=== PATIENT | female | born 1965 | race Hispanic/Latino ===

== ENCOUNTER 2022-03-17 16:20 | Emergency (ER) | payer OTHER, SELFPAY ==
[2022-03-17 16:27] VITALS: PULSE 86; RESP 18; TEMP 36.9; O2SAT 99
--- NOTE | 2022-03-17 18:08 | ED_ITS ---
HPI - Headache General Chief Complaint: Headache Stated Complaint: Fell and hit head Time Seen by Provider: 03/17/22 18:08 Mode of arrival: Ambulatory History of Present Illness HPI Narrative: 57-year-old female nonsmoker with noncontributory medical history presents with family for evaluation of a ground level fall at work resulting in a left-sided head injury. She states that she was in her normal state of health and denies prodromal symptoms such as dizziness, weakness or lightheadedness. She states that she got her feet caught up in some clothing on the ground when she was cleaning and tripped and fell, striking the left side of her head. She does not think she lost consciousness and has been nauseated but denies vomiting. She has no blurred vision or trouble with speech. She denies any neck pain, back pain, chest pain shoulder pain, elbow pain or pain in her hips. She does not take blood thinners and denies use of alcohol or street drugs. Related Data Home Medications Medication Instructions Recorded Confirmed albuterol sulfate 90 mcg/actuation 2 puff INH Q4HP PRN ##0 02/03/17 07/04/18 aerosol inhaler (Ventolin HFA) Previous Rx's Medication Instructions Recorded ibuprofen 800 mg tablet 800 mg PO TIDP PRN #20 tabs 02/03/17 meclizine 25 mg chewable tablet 25 mg PO Q6HP PRN #40 tabs 03/13/17 naproxen 500 mg tablet (Naprosyn) 500 mg PO BIDP PRN #60 tabs 03/13/17 ondansetron 4 mg disintegrating 4 mg sublingual Q6HP PRN ##10 03/17/17 tablet (Zofran ODT) albuterol sulfate 90 mcg/actuation 1 inh inhalation Q4-6H PRN 07/04/18 aerosol inhaler shortness of breath #18 grams azithromycin 250 mg tablet See Rx Instructions PO .COMPLEX #6 07/04/18 tabs Allergies Allergy/AdvReac Type Severity Reaction Status Date / Time No Known Allergies Allergy Uncoded 07/04/18 10:51 Review of Systems Review of Systems Narrative: GENERAL: Denies chills, fatigue, malaise, fever, sweats. HEENT: Denies sinus pain, ear pain, sore throat, difficulty swallowing, dizziness. RESPIRATORY: Denies dyspnea, cough, wheezing, hemoptysis, sputum. CARDIOVASCULAR: Denies chest pain, palpitations, orthopnea, edema, GASTROINTESTINAL: Denies nausea, vomiting, abdominal pain, diarrhea, constipation, melena. : Denies dysuria, frequency, incontinence, hematuria, urinary retention. MUSCULOSKELETAL: denies weakness, joint pain, or bony pain SKIN: Denies rash, skin lesions, or other NEUROLOGIC: Denies weakness, headache, numbness, change in speech, confusion, seizures, incoordination. PSYCHIATRIC: No concerning psychosocial issues. 12 point review of systems is negative except for those stated above Patient History Social History Smoking Status: Never smoker Smoking Status: Never smoker Exam Narrative Exam Narrative: GENERAL: [57] year old patient appears stated age. Well-developed patient, in mild distress. GCS 15 HEAD: Moderate size hematoma on left parietal and occiput, no bleeding, laceration or abrasion, no evidence of depressed skull fracture EYES: Pupils equal round and reactive. No hyphema Extraocular motions intact. No scleral icterus. No injection or drainage. ENT: Nose without bleeding, purulent drainage. Throat without erythema, tonsillar hypertrophy or exudate. Airway patent. NECK: Trachea midline. Non tender, no step-offs or crepitance, full painless range of motion, no extremity numbness, tingling or weakness CARDIOVASCULAR: Regular rate and rhythm without murmurs, gallops, or rubs. RESPIRATORY: Clear to auscultation. Breath sounds equal bilaterally. No wheezes, rales, or rhonchi. GASTROINTESTINAL: Abdomen soft, non-tender, nondistended. EXTREMITIES: She does complain of minimal tenderness on the volar aspect of her left wrist without obvious deformity, point tenderness, limited range of motion, numbness, tingling or weakness BACK: Nontender without deformity or crepitance. No flank tenderness. NEURO: AOx3. SKIN: No rash or erythema of visible areas Initial Vital Signs Initial Vital Signs: Vital Signs Temperature 98.5 F 03/17/22 16:27 Pulse Rate 86 03/17/22 16:27 Respiratory Rate 18 03/17/22 16:27 Pulse Oximetry 99 03/17/22 16:27 Oxygen Delivery Method 03/17/22 16:27 Course Orders Ordered: ED Orders 03/17/22 18:13 CT head/brain wo con Stat Vital Signs Vital signs: Vital Signs - 8 hr 03/17/22 16:27 03/17/22 18:09 Temperature 98.5 F Pulse Rate 86 76 Respiratory Rate 18 16 Blood Pressure 117/73 Pulse Oximetry 99 99 Oxygen Delivery Method Room Air Room Air MDM - Headache Imaging Data CT scan - head: Radiologist's Impression: Close Head CT (Signed) Axel Randall - 03/17/22 [place] [address] CT Scan Report Signed Patient: Johnna Mcgee MR#: [id number] : 1965 Acct:[id number] Age/Sex: 57 / F Date of Service: 03/17/22 Loc: ED Accession Number: [id number] ?? Procedure: CT head/brain wo con Ordering Provider: Clement Barrera D.O. PROCEDURE:? CT HEAD/BRAIN WO CON ? INDICATIONS:? fall with left side head injury ? TECHNIQUE:? Noncontrast 4.5 mm thick angled axial sections acquired from the foramen magnum to the vertex, with coronal and sagittal reformats.? For radiation dose reduction, the following was used:? automated exposure control, adjustment of mA and/or kV according to patient size.? ? COMPARISON:? None. ? FINDINGS:? Image quality:? Excellent.? ? CSF spaces:? Basal cisterns are patent.? No extra-axial fluid collections.? The ventricles are symmetric in size and shape.? ? Brain:? No intracranial bleeds or masses.? There is cerebral volume loss for age, with resultant ventricular and sulcal prominence.? There are periventricular and deep white matter chronic small vessel ischemic changes.? There is intracranial internal carotid artery atherosclerosis.? ? Skull and face:? Calvarium and visualized facial bones appear intact, without suspicious lesions.? ? Sinuses:? Visualized sinuses and mastoids are clear.? ? IMPRESSION:? No acute intracranial finding. ? ? Dictated by: Axel Randall M.D. on 03/17/2022 at 18:54 ? ? Approved by: Axel Randall M.D. on 03/17/2022 at 18:54 ? Discharge Plan Departure Patient Disposition: Home Clinical Impression: Head contusion, Left wrist sprain Instructions: Contusion Activity Restrictions/Additional Instructions: *You have been diagnosed with [fall with scalp contusion. History and physical exam are very reassuring and CT scan shows no bleeding in the brain] *What to do: *Please continue to take your regular medications as directed. [ ] New medication prescriptions sent to your pharmacy: [ ] [ ] New medication written as a paper prescription [ ] No new medications given *Please follow up with your primary care provider in 2-3 days, call for an appointment. Let them know you were seen in the Emergency Department and that we ask that you be seen in follow up. We will electronically transmit a record of today's note if your PCP is in our system *If you do not have a primary care provider please contact the [facility] Resource line at [phone]. They will ask some questions about your medical history and help get you set up with a doctor in the community. *Return to Emergency Department if you should have any new, worsening or concerning symptoms, such as [fever greater than 101 F, shaking chills, worsening pain, persistent vomiting or other bothersome symptoms] Prescriptions: No Action albuterol sulfate 90 mcg/actuation HFA aerosol inhaler 1 inh INHALATION Q4-6H PRN (Reason: shortness of breath) Qty: 18 0RF azithromycin 250 mg tablet See Rx Instructions PO .COMPLEX Qty: 6 0RF Rx Instructions: take 500 mg today (day 1), then 250 mg for 4 days (days 2-5) PO albuterol sulfate [Ventolin HFA] 90 MCG/PUFF HFA aerosol inhaler 2 puff INH Q4HP PRNQty: 0 ibuprofen 800 MG tablet 800 mg PO TIDP PRNQty: 20 0RF naproxen [Naprosyn] 500 MG tablet 500 mg PO BIDP PRNQty: 60 0RF meclizine 25 MG tablet,chewable 25 mg PO Q6HP PRNQty: 40 0RF ondansetron [Zofran ODT] 4 MG tablet,disintegrating 4 mg Sublingual Q6HP PRNQty: 10 0RF Stand Alone Forms: Work Release Note Visit Report Forms: Patient Portal/API
[2022-03-17 18:09] VITALS: BP 117/73; PULSE 76; RESP 16; O2SAT 99
--- NOTE | 2022-03-17 18:13 | DI.CT.S_ITS ---
PROCEDURE: CT HEAD/BRAIN WO CON INDICATIONS: fall with left side head injury TECHNIQUE: Noncontrast 4.5 mm thick angled axial sections acquired from the foramen magnum to the vertex, with coronal and sagittal reformats. For radiation dose reduction, the following was used: automated exposure control, adjustment of mA and/or kV according to patient size. COMPARISON: None. FINDINGS: Image quality: Excellent. CSF spaces: Basal cisterns are patent. No extra-axial fluid collections. The ventricles are symmetric in size and shape. Brain: No intracranial bleeds or masses. There is cerebral volume loss for age, with resultant ventricular and sulcal prominence. There are periventricular and deep white matter chronic small vessel ischemic changes. There is intracranial internal carotid artery atherosclerosis. Skull and face: Calvarium and visualized facial bones appear intact, without suspicious lesions. Sinuses: Visualized sinuses and mastoids are clear. IMPRESSION: No acute intracranial finding. Dictated by: Axel Randall M.D. on 03/17/2022 at 18:54 Approved by: Axel Randall M.D. on 03/17/2022 at 18:54
== END 2022-03-17 19:08 | disposition home or self-care (01) ==
PROVIDERS: Emergency Provider Emergency Medicine
DX: S00.03XA Contusion of scalp, initial encounter (principal); S63.502A Unspecified sprain of left wrist, initial encounter; W18.30XA Fall on same level, unspecified, initial encounter
CPT/HCPCS: 70450; 99283

== ENCOUNTER 2022-04-09 11:45 | Emergency (ER) | payer SELFPAY ==
[2022-04-09] VITALS (9 sets, daily range): BP systolic 119–126; BP diastolic 56–63; PULSE 88–117; RESP 15–33; TEMP 36.8; O2SAT 92–98
--- NOTE | 2022-04-09 12:04 | ED.GENADULT ---
HPI - General Adult General Chief complaint: Upper Respiratory Symptoms Stated complaint: SOB cough has inhler xtry of astma Time Seen by Provider: 04/09/22 11:58 Source: patient Mode of arrival: Ambulatory Limitations: language barrier History of Present Illness HPI narrative: 57-year-old female who is Citizen Of [place]-speaking only. Translation line was used. Has a history of asthma. States that this morning after she woke up she started to have problems bleeding to include shortness of breath and coughing. Is also having some mild chest pain. No abdominal pain. Skin rashes. No lower extremity swelling. Related Data Home Medications Medication Instructions Recorded Confirmed albuterol sulfate 90 mcg/actuation 2 puff INH Q4HP PRN ##0 02/03/17 07/04/18 aerosol inhaler (Ventolin HFA) Previous Rx's Medication Instructions Recorded ibuprofen 800 mg tablet 800 mg PO TIDP PRN #20 tabs 02/03/17 meclizine 25 mg chewable tablet 25 mg PO Q6HP PRN #40 tabs 03/13/17 naproxen 500 mg tablet (Naprosyn) 500 mg PO BIDP PRN #60 tabs 03/13/17 ondansetron 4 mg disintegrating 4 mg sublingual Q6HP PRN ##10 03/17/17 tablet (Zofran ODT) albuterol sulfate 90 mcg/actuation 1 inh inhalation Q4-6H PRN 07/04/18 aerosol inhaler shortness of breath #18 grams azithromycin 250 mg tablet See Rx Instructions PO .COMPLEX #6 07/04/18 tabs Allergies Allergy/AdvReac Type Severity Reaction Status Date / Time No Known Allergies Allergy Verified 04/09/22 12:04 Review of Systems Cardiovascular Cardiovascular: Reports system reviewed and no additional complaints, except as documented Respiratory Respiratory: Reports system reviewed and no additional complaints, except as documented Gastrointestinal Gastrointestinal: Reports system reviewed and no additional complaints, except as documented Integumentary/Breasts Skin/Breast: Reports system reviewed and no additional complaints, except as documented Patient History Medical History Asthma Social History Smoking Status: Never smoker Smoking Status: Never smoker Exam Initial Vital Signs Initial Vital Signs: Vital Signs Pulse Rate 117 H 04/09/22 11:55 Pulse Oximetry 95 04/09/22 11:55 Const General: cooperative and comfortable Resp Effort & Inspection: labored and tachypneic Auscultation: diminished lung sounds and wheezes Skin General: no rashes or lesions noted Neuro General: patient alert, patient awake and moves all extremities Extrem General: capillary refill normal Course Orders Ordered: ED Orders 04/09/22 12:02 RT Consult Eval and Treat Now 04/09/22 12:15 EKG-12 Lead Stat 04/09/22 12:32 XR chest 1V Stat 04/09/22 12:47 Covid-19 + FLU A/B + RSV - PCR Stat Discontinued Medications Albuterol (Albuterol 2.5 Mg/3 Ml Neb (Adult)) 2.5 mg INH NOW ONE Stop: 04/09/22 13:28 Last Admin: 04/09/22 13:54 Dose: 2.5 mg Documented By: JOSE Albuterol/Ipratropium (Albuterol/Ipratropium 3 Ml Ampul) 3 ml INH NOW ONE Stop: 04/09/22 12:01 Last Admin: 04/09/22 12:10 Dose: 3 ml Documented By: MR Albuterol/Ipratropium (Albuterol/Ipratropium 3 Ml Ampul) 3 ml INH NOW ONE Stop: 04/09/22 12:32 Last Admin: 04/09/22 12:42 Dose: 3 ml Documented By: JOSE Albuterol/Ipratropium (Albuterol/Ipratropium 3 Ml Ampul) 3 ml INH NOW ONE Stop: 04/09/22 12:32 Last Admin: 04/09/22 12:42 Dose: 3 ml Documented By: JOSE Dexamethasone (Dexamethasone 4 Mg Tablet) 12 mg PO NOW ONE Stop: 04/09/22 12:01 Last Admin: 04/09/22 12:29 Dose: 12 mg Documented By: JOSE Vital Signs Vital signs: Vital Signs - 8 hr 04/09/22 12:03 04/09/22 11:55 04/09/22 12:00 Temperature 98.3 F Pulse Rate 117 H 117 H 115 H Respiratory Rate 22 Blood Pressure 126/63 Pulse Oximetry 95 95 93 Oxygen Delivery Method Room Air Oxygen Flow Rate 04/09/22 12:30 Temperature Pulse Rate 103 H Respiratory Rate 15 Blood Pressure Pulse Oximetry 97 Oxygen Delivery Method Nasal Cannula Oxygen Flow Rate 2 Medical Decision Making Lab Data Labs: Lab Results 04/09/22 Range/Units 12:47 SARS-CoV-2 (PCR) Negative (Negative) Influenza A (RT-PCR) Flu a negative (NEGATIVE) Influenza B (RT-PCR) Flu b negative (NEGATIVE) RSV (PCR) Negative (Negative) Imaging Data Chest x-ray: Radiologist's Impression: [address] [address] XRay Report Signed Patient: Johnna Mcgee MR#: [id number] : 1965 Acct:[id number] Age/Sex: 57 / F Date of Service: 04/09/22 Loc: ED Accession Number: [id number] ?? Procedure: XR chest 1V Ordering Provider: Ruben Jimenez D.O. PROCEDURE:? XR CHEST 1V ? INDICATIONS:? SOB ? TECHNIQUE:? One view of the chest was acquired.? ? COMPARISON:? [facility], , CHEST 1 VIEW, 03/17/2017, 20:43. ? FINDINGS:? ? Surgical changes and devices:? None.? ? Lungs and pleura:? Lungs are clear.? No pleural effusions or pneumothorax.? ? Mediastinum:? Mediastinal contours appear normal.? Heart size is normal.? ? Bones and chest wall:? No suspicious bony lesions.? Overlying soft tissues appear unremarkable.? ? IMPRESSION:? No acute cardiopulmonary pathology. ? ? Dictated by: Ricardo Hameed M.D. on 04/09/2022 at 13:05 ? ? Approved by: Ricardo Hameed M.D. on 04/09/2022 at 13:05 ECG Data Attestation: I personally reviewed and interpreted this ECG as follows: Interpretation: Sinus tachycardia Ventricular rate 108 Normal axis Normal QRS Normal QTC Nonspecific ST T wave changes MDM Narrative Medical decision making narrative: After treatment here in the emergency department patient is feeling much better. There is no indication for any antibiotics. She has albuterol at home. I had return precautions discussion with her through the language line. She reported no further questions. She was given return precautions and she expressed understanding. Discharge Plan Departure Patient Disposition: Home Clinical Impression: Asthma exacerbation Instructions: Asthma -- Adult Prescriptions: No Action albuterol sulfate 90 mcg/actuation HFA aerosol inhaler 1 inh INHALATION Q4-6H PRN (Reason: shortness of breath) Qty: 18 0RF azithromycin 250 mg tablet See Rx Instructions PO .COMPLEX Qty: 6 0RF Rx Instructions: take 500 mg today (day 1), then 250 mg for 4 days (days 2-5) PO albuterol sulfate [Ventolin HFA] 90 MCG/PUFF HFA aerosol inhaler 2 puff INH Q4HP PRNQty: 0 ibuprofen 800 MG tablet 800 mg PO TIDP PRNQty: 20 0RF naproxen [Naprosyn] 500 MG tablet 500 mg PO BIDP PRNQty: 60 0RF meclizine 25 MG tablet,chewable 25 mg PO Q6HP PRNQty: 40 0RF ondansetron [Zofran ODT] 4 MG tablet,disintegrating 4 mg Sublingual Q6HP PRNQty: 10 0RF Referrals: Matthew Queen MD [Primary Care Provider] -
[2022-04-09] MEDS: ALBUTEROL/IPRATROPIUM 3 ML AMPUL INH ×3 (12:10→12:42)
[2022-04-09] MEDS: dexAMETHasone 4 MG TABLET 12 MG PO (12:29)
--- NOTE | 2022-04-09 12:29 | PC.NURSE ---
Pt arrived to ED ambulatory with SOB. h/o asthma. 95% RA. audibly wheezing. rec'd Dex PO and Duoneb. post neb pt reports minimal relief. Pt still wheezy to ausc. sitting over edge of bed. increased WOB has subsided however SPO2 93-94%. placed on 2L O2 for comfort and pt has laid back slightly in bed and appears more comfortable. family member at bedside and spanish interpreter ipad used for communication. pt denies any questions at this time and reports that her home inhaler she has a spacer and is educated appropriately on use.
--- NOTE | 2022-04-09 12:32 | DI.RAD.S_ITS ---
PROCEDURE: XR CHEST 1V INDICATIONS: SOB TECHNIQUE: One view of the chest was acquired. COMPARISON: [facility], , CHEST 1 VIEW, 03/17/2017, 20:43. FINDINGS: Surgical changes and devices: None. Lungs and pleura: Lungs are clear. No pleural effusions or pneumothorax. Mediastinum: Mediastinal contours appear normal. Heart size is normal. Bones and chest wall: No suspicious bony lesions. Overlying soft tissues appear unremarkable. IMPRESSION: No acute cardiopulmonary pathology. Dictated by: Ricardo Hameed M.D. on 04/09/2022 at 13:05 Approved by: Ricardo Hameed M.D. on 04/09/2022 at 13:05
[2022-04-09 13:35] LABS: Influenza A - CEPHEID Flu A NEGATIVE (NEGATIVE); Influenza B - CEPHEID Flu B NEGATIVE (NEGATIVE); Respiratory Syncytial Virus Negative (Negative)
[2022-04-09 13:44] LABS: COVID-19 CEPHEID 4-PLEX PCR Negative (Negative)
[2022-04-09] MEDS: ALBUTEROL 2.5 MG/3 ML NEB (ADULT) INH (13:54)
== END 2022-04-09 14:29 | disposition home or self-care (01) ==
PROVIDERS: Emergency Provider Emergency Medicine; PCP Family Medicine
DX: J45.901 Unspecified asthma with (acute) exacerbation (principal); R07.9 Chest pain, unspecified; Z20.822 Contact with and (suspected) exposure to COVID-19
CPT/HCPCS: 0241U; 71045; 93005; 93010; 99284; J7613

== ENCOUNTER 2022-04-09 18:26 | Inpatient (IN) | payer SELFPAY ==
[2022-04-09] VITALS (7 sets, daily range): BP systolic 117–126; BP diastolic 56–61; PULSE 93–100; RESP 20–29; TEMP 36.9; O2SAT 89–94
--- NOTE | 2022-04-09 19:30 | ED.SOB ---
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 Presents today for the 2nd time with shortness of breath. She has a history of asthma was seen earlier for an asthma exacerbation she was given albuterol and dexamethasone she was doing well. She went home took a nap woke up and had some chest discomfort along with back pain. Also complaining of some abdominal pain. Feels like she is also having some difficulty breathing. No fever or chills. Related Data Home Medications Medication Instructions Recorded Confirmed albuterol sulfate 90 mcg/actuation 2 puff INH Q4HP PRN ##0 02/03/17 07/04/18 aerosol inhaler (Ventolin HFA) Previous Rx's Medication Instructions Recorded ibuprofen 800 mg tablet 800 mg PO TIDP PRN #20 tabs 02/03/17 meclizine 25 mg chewable tablet 25 mg PO Q6HP PRN #40 tabs 03/13/17 naproxen 500 mg tablet (Naprosyn) 500 mg PO BIDP PRN #60 tabs 03/13/17 ondansetron 4 mg disintegrating 4 mg sublingual Q6HP PRN ##10 03/17/17 tablet (Zofran ODT) albuterol sulfate 90 mcg/actuation 1 inh inhalation Q4-6H PRN 07/04/18 aerosol inhaler shortness of breath #18 grams azithromycin 250 mg tablet See Rx Instructions PO .COMPLEX #6 07/04/18 tabs Allergies Allergy/AdvReac Type Severity Reaction Status Date / Time No Known Allergies Allergy Verified 04/09/22 12:04 Review of Systems Review of Systems Narrative: GENERAL: Denies chills, fatigue, malaise, fever, sweats, travel HEENT: Denies sinus pain, ear pain, sore throat, difficulty swallowing, neck pain RESPIRATORY: See HPI CARDIOVASCULAR: See HPI GASTROINTESTINAL: Denies nausea, vomiting, abdominal pain, diarrhea, constipation, melena. : Denies dysuria, frequency, incontinence, hematuria, urinary retention, flank pain. MUSCULOSKELETAL: Denies weakness, joint pain, or bony pain SKIN: No rash, no erythema, no pruritus NEUROLOGIC: Denies weakness, dizziness, headache, numbness, change in speech, confusion PSYCHIATRIC: No concerning psychosocial issues. 12 point review of systems is negative except for those stated above and HPI Patient History Medical History Asthma Family History (Updated 04/10/22 @ 02:53 by KIAN Duggan-SHABNAM) Father Diabetes mellitus Hypertension Mother Hypertension Diabetes mellitus Social History household members: spouse and children Smoking Status: Never smoker alcohol intake: never Smoking Status: Never smoker Exam Initial Vital Signs Initial Vital Signs: Vital Signs Temperature 98.5 F 04/09/22 19:12 Pulse Rate 98 H 04/09/22 19:12 Respiratory Rate 24 04/09/22 19:12 Blood Pressure 117/56 L 04/09/22 19:12 Pulse Oximetry 94 04/09/22 19:12 Oxygen Delivery Method 04/09/22 19:12 GENERAL: Alert 57-year-old female appears to not feel well responsive answers questions HEENT: Head atraumatic,EOMI, pupils reactive, face symmetric, moist mucous membranes CARDIOVASCULAR: Regular rate and rhythm without murmurs, rubs or gallops. RESPIRATORY: Mild expiratory wheezing no tachypnea ABDOMEN: Soft, nontender. Normoactive bowel sounds all 4 quadrants. No guarding or rebound. EXTREMITIES: Normal range of motion, no clubbing or edema. Neurovascularly intact NEUROLOGICAL: Alert and oriented x4.Normal gait and speech. SKIN: Warm, dry, no laceration, no petechiae, no rashes or lesions. Course Orders Ordered: ED Orders 04/09/22 19:31 EKG-12 Lead Stat 04/09/22 19:34 Respiratory Panel (Film Array) Stat 04/09/22 19:48 Complete Blood Count AUTO DIFF Stat 04/09/22 21:10 BNP [NT-proBNP (BNP-Adult 18+)] Stat Comprehensive Metabolic Panel Stat D Dimer Stat Lipase Stat Magnesium Stat Troponin & CK Cardiac Panel Stat 04/09/22 23:01 CT angio chest PE protocol Stat Acetaminophen (Acetaminophen 325 Mg Tablet) 650 mg PO Q6H PRN PRN Reason: Fever/Mild Pain (1-3) Albuterol/Ipratropium (Albuterol/Ipratropium 3 Ml Ampul) 3 ml INH [id number] [facility] Enoxaparin Sodium (Enoxaparin 40 Mg/0.4 Ml Syringe) 40 mg SUBCUT DAILY [facility] Lactated Ringer's (Lactated Ringers) 1,000 mls @ 100 mls/hr IV CONT LISA Stop: 04/10/22 08:24 Last Admin: 04/10/22 02:37 Dose: 100 mls/hr Documented By: Influenza Virus Vaccine (Influenza Vaccine Qiv 0.5 Ml Syringe) 0.5 ml IM .ONCE ONE Stop: 04/10/22 09:01 Naloxone HCl (Naloxone 0.4 Mg/Ml Vial) 0.2 mg IV Q2MIN PRN PRN Reason: Opiate Reversal Pantoprazole Sodium (Pantoprazole Dr 20 Mg Tablet) 20 mg PO 0600 [facility] Prednisone (Prednisone 20 Mg Tablet) 40 mg PO DAILY [facility] Discontinued Medications Albuterol/Ipratropium (Albuterol/Ipratropium 3 Ml Ampul) 3 ml INH NOW ONE Stop: 04/09/22 19:37 Last Admin: 04/09/22 19:37 Dose: 3 ml Documented By: HECTOR Albuterol/Ipratropium (Albuterol/Ipratropium 3 Ml Ampul) 3 ml INH NOW ONE Stop: 04/09/22 19:39 Last Admin: 04/09/22 22:40 Dose: 3 ml Documented By: MIGNON Vital Signs Vital signs: Vital Signs - 8 hr 04/09/22 19:38 04/09/22 22:21 04/09/22 22:23 Pulse Rate 99 H 100 H 97 H Respiratory Rate 20 29 H 21 Blood Pressure Pulse Oximetry 94 94 93 Oxygen Delivery Method Room Air Oxygen Flow Rate 04/09/22 22:23 04/09/22 22:40 04/09/22 22:30 Pulse Rate 93 H Respiratory Rate 20 Blood Pressure 126/58 L 123/61 Pulse Oximetry 90 L Oxygen Delivery Method Room Air Oxygen Flow Rate 04/09/22 22:30 04/09/22 23:59 Pulse Rate 97 H Respiratory Rate 24 Blood Pressure Pulse Oximetry 92 89 L Oxygen Delivery Method Nasal Cannula Room Air Oxygen Flow Rate 2 MDM - SOB/Dyspnea Lab Data Result diagrams: 04/09/22 19:48 11/09/22 21:10 Labs: Lab Results 04/09/22 04/09/22 04/09/22 Range/Units 19:34 19:48 21:10 WBC 8.1 (4.5-11.0) X10^3/uL RBC 4.74 (4.0-5.2) X10^6/uL Hgb 14.3 (12.0-16.0) g/dL Hct 42.6 (36-46) % MCV 89.8 (80-100) fL MCH 30.3 (26-34) PG MCHC 33.7 (30-36) % RDW 14.0 (11.6-14.8) % Plt Count 179 (150-400) X10^3/uL Neut % (Auto) 93.2 H (50-75) % Lymph % (Auto) 5.7 L (25-40) % [place] % (Auto) 0.8 L (3-14) % Eos % (Auto) 0.1 L (2-4) % Baso % (Auto) 0.2 (0-2) % Neut # (Auto) 7600 H (8507-7709) /uL Lymph # (Auto) 500 L (4386-6271) /uL [place] # (Auto) 100 (0-900) /uL Eos # (Auto) 0 (0-450) /uL Baso # (Auto) 0 (0-100) /uL D-Dimer (<500) ng/ml Sodium 140 (137-145) mmol/L Potassium 4.3 (3.4-5.1) mmol/L Chloride 103 (98-107) mmol/L Carbon Dioxide 27 (22-32) mmol/L BUN 10 (7-17) mg/dL Creatinine 0.41 L (0.52-1.04) mg/dL Estimated GFR > 60 (>60) mL/min BUN/Creatinine Ratio 24.4 H (6-22) Glucose 200 H (70-100) mg/dL Calcium 9.7 (8.4-10.2) mg/dL Magnesium 2.0 (1.6-2.3) mg/dL Total Bilirubin 0.9 (0.2-1.3) mg/dL AST 40 H (14-36) IU/L ALT 65 H (<35) IU/L Alkaline Phosphatase 82 (38-126) U/L Total Creatine Kinase 149 H (30-135) U/L CK-MB (CK-2) 3.24 H (<2.37) ng/mL CK-MB (CK-2) Rel Index 2.2 (1.5-5.0) % Troponin I < 0.012 (0.01-0.034) ng/mL NT-Pro-B Natriuret Pep (<125) pg/mL Total Protein 8.1 (6.3-8.2) g/dL Albumin 4.6 (3.5-5.0) g/dL Globulin 3.5 (1.7-4.1) g/dL Albumin/Globulin Ratio 1.3 (1.0-2.8) Lipase 46 (23-300) U/L Chlamy pneumoniae PCR Not detected (Not Detect) Adenovirus (PCR) Not detected (Not Detect) B. pertussis DNA (PCR) Not detected (Not Detecte) B.parapertussis DNA PCR Not detected (Not Detecte) Coronavirus OC43 (PCR) Not detected (Not Detect) Coronavirus HKU1 (PCR) Not detected (Not Detect) Coronavirus 229E (PCR) Not detected (Not Detect) SARS-CoV-2 (PCR) Not detected (Not Detecte) Coronavirus NL63 (PCR) Not detected (Not Detect) Human Metapneumovir PCR Not detected (Not Detect) Influenza Type A (PCR) Not detected (Not Detect) Influenza Type B (PCR) Not detected (Not Detect) M. pneumoniae (PCR) Not detected (Not Detect) Parainfluenza 1 (PCR) Not detected (Not Detect) Parainfluenza 2 (PCR) Not detected (Not Detect) Parainfluenza 3 (PCR) Not detected (Not Detect) Parainfluenza 4 (PCR) Not detected (Not Detect) RSV (PCR) Not detected (Not Detect) Entero/Rhino (PCR) Detected H (Not Detect) 04/09/22 04/09/22 Range/Units 21:10 21:10 WBC (4.5-11.0) X10^3/uL RBC (4.0-5.2) X10^6/uL Hgb (12.0-16.0) g/dL Hct (36-46) % MCV (80-100) fL MCH (26-34) PG MCHC (30-36) % RDW (11.6-14.8) % Plt Count (150-400) X10^3/uL Neut % (Auto) (50-75) % Lymph % (Auto) (25-40) % [place] % (Auto) (3-14) % Eos % (Auto) (2-4) % Baso % (Auto) (0-2) % Neut # (Auto) (4795-3315) /uL Lymph # (Auto) (0515-4262) /uL [place] # (Auto) (0-900) /uL Eos # (Auto) (0-450) /uL Baso # (Auto) (0-100) /uL D-Dimer 851 H (<500) ng/ml Sodium (137-145) mmol/L Potassium (3.4-5.1) mmol/L Chloride (98-107) mmol/L Carbon Dioxide (22-32) mmol/L BUN (7-17) mg/dL Creatinine (0.52-1.04) mg/dL Estimated GFR (>60) mL/min BUN/Creatinine Ratio (6-22) Glucose (70-100) mg/dL Calcium (8.4-10.2) mg/dL Magnesium (1.6-2.3) mg/dL Total Bilirubin (0.2-1.3) mg/dL AST (14-36) IU/L ALT (<35) IU/L Alkaline Phosphatase (38-126) U/L Total Creatine Kinase (30-135) U/L CK-MB (CK-2) (<2.37) ng/mL CK-MB (CK-2) Rel Index (1.5-5.0) % Troponin I (0.01-0.034) ng/mL NT-Pro-B Natriuret Pep 56 (<125) pg/mL Total Protein (6.3-8.2) g/dL Albumin (3.5-5.0) g/dL Globulin (1.7-4.1) g/dL Albumin/Globulin Ratio (1.0-2.8) Lipase (23-300) U/L Chlamy pneumoniae PCR (Not Detect) Adenovirus (PCR) (Not Detect) B. pertussis DNA (PCR) (Not Detecte) B.parapertussis DNA PCR (Not Detecte) Coronavirus OC43 (PCR) (Not Detect) Coronavirus HKU1 (PCR) (Not Detect) Coronavirus 229E (PCR) (Not Detect) SARS-CoV-2 (PCR) (Not Detecte) Coronavirus NL63 (PCR) (Not Detect) Human Metapneumovir PCR (Not Detect) Influenza Type A (PCR) (Not Detect) Influenza Type B (PCR) (Not Detect) M. pneumoniae (PCR) (Not Detect) Parainfluenza 1 (PCR) (Not Detect) Parainfluenza 2 (PCR) (Not Detect) Parainfluenza 3 (PCR) (Not Detect) Parainfluenza 4 (PCR) (Not Detect) RSV (PCR) (Not Detect) Entero/Rhino (PCR) (Not Detect) Imaging Data CT scan - chest: Radiologist's Impression: ent: Kris SuzetteJohnna A MR#: [id number] : 1965 Acct:[id number] Age/Sex: 57 / F Date of Service: 04/09/22 Loc: ED Accession Number: [id number] ?? Procedure: CT angio chest PE protocol Ordering Provider: Susannah Sams D.O. PROCEDURE:? CT ANGIO CHEST PE PROTOCOL ? INDICATIONS:? hypoxic ? TECHNIQUE:? After the administration of intravenous contrast, 2 mm thick sections acquired from the pulmonary apices to the posterior costophrenic angles.? 3-dimensional maximum intensity projection (MIP) coronal and sagittal reformats were then acquired through the thorax.? For radiation dose reduction, the following was used:? automated exposure control, adjustment of mA and/or kV according to patient size.? ? COMPARISON:? [facility], CR, XR CHEST 1V, 04/09/2022, 12:30. ? FINDINGS:? Image quality:? Excellent.? ? Pulmonary arteries:? Pulmonary arteries are normal in size, and demonstrate no intraluminal filling defects to suggest central pulmonary embolism.? ? Lower Neck: No lymphadenopathy by size criteria. Thyroid:? Visualized thyroid demonstrates no discrete nodules. Axillae: No lymphadenopathy by size criteria. Chest Wall:? Unremarkable.? Bones: Visualized osseous structures demonstrate no suspicious lesions. ? Lungs and Airways:? There is a small linear region of consolidation in the right middle lobe along the major fissure.? A subpleural nodule is demonstrated within the medial right lower lobe with associated internal calcification consistent with calcified granuloma.? No suspicious pulmonary nodules. The trachea and central airways are patent. Pleura: No pneumothorax or pleural effusions.? ? Heart: Heart size is normal.? No pericardial effusion. Thoracic Vessels: The thoracic aorta is normal in size.? Mediastinum and Katerine: No lymphadenopathy by size criteria. Esophagus: No wall thickening. No hiatal hernia. ? Abdomen:? Visualized upper abdomen demonstrates a cyst within the posterior right hepatic dome measuring up to 1.4 cm.? Wall ? IMPRESSION:? ? 1. No evidence of pulmonary embolism. ? 2. Small linear region of consolidation within the posterior right middle lobe along the major fissure.? The findings are nonspecific but suggestive of pneumonia.? The differential includes atelectasis. ? ? Dictated by: Wilfrid Bagley M.D. on 04/10/2022 at 0:18 ? ECG Data Interpretation: EKG 1. Sinus rhythm rate 101 FL interval 154 QRS [address] changes no T-wave inversions similar to previous EKG earlier today EKG 2. Sinus rhythm rate 97 similar to prior MDM Narrative Medical decision making narrative: Patient initially given albuterol treatment seems to help mildly. She is positive for entero/rhinovirus. She overall appears to not feel well but no obvious respiratory distress. She does start requiring oxygen 2 L and says 92 % on 2 L she drops to 89% on room air. She is given another his breathing treatment only helps mildly. Her D-dimer is elevated at 100 CT angio does not show any pulmonary embolism. She has no leukocytosis. At this time since she is requiring oxygen she will require admission. Sushil accepts patient Discharge Plan Departure Patient Disposition: Admitted as Observation Clinical Impression: Respiratory failure, Asthma exacerbation, Enterovirus infection Admit Date/Time: 04/10/22 00:41 Admit Provider: Destini Ling
[2022-04-09] MEDS: ALBUTEROL/IPRATROPIUM 3 ML AMPUL INH ×2 (19:37→22:40)
[2022-04-09 19:52] LABS: Add Manual Diff / Slide Review NO; Basophils Absolute Auto 0 /uL (0-100); Basophils Percent Auto 0.2 % (0-2); Eosinophils Absolute Auto 0 /uL (0-450); Eosinophils Percent Auto 0.1 % (2-4); Hematocrit 42.6 % (36-46); Hemoglobin 14.3 g/dL (12.0-16.0); Lymphocytes Absolute Auto 500 /uL (1100-4500); Lymphocytes Percent Auto 5.7 % (25-40); Mean Corpuscular HGB Conc 33.7 % (30-36); Mean Corpuscular Hemoglobin 30.3 PG (26-34); Mean Corpuscular Volume 89.8 fL (80-100); Monocytes Absolute Auto 100 /uL (0-900); Monocytes Percent Auto 0.8 % (3-14); Neutrophils Absolute Auto 7600 /uL (1500-7000); Neutrophils Percent Auto 93.2 % (50-75); Platelet Count 179 X10^3/uL (150-400); Red Blood Cell Count 4.74 X10^6/uL (4.0-5.2); White Blood Cell Count 8.1 X10^3/uL (4.5-11.0)
[2022-04-09 20:40] LABS: Adenovirus Not Detected (Not Detect); B. parapertussis Not Detected (Not Detecte); Bordetella pertussis Not Detected (Not Detecte); Chlamydophila pneumoniae Not Detected (Not Detect); Coronavirus 229E Not Detected (Not Detect); Coronavirus HKU1 Not Detected (Not Detect); Coronavirus NL 63 Not Detected (Not Detect); Coronavirus OC43 Not Detected (Not Detect); Human Metapneumovirus Not Detected (Not Detect); Human Rhinovirus/Enterovirus Detected (Not Detect); Influenza A Not Detected (Not Detect); Influenza B Not Detected (Not Detect); Mycoplasma pneumoniae Not Detected (Not Detect); Parainfluenza Virus 1 Not Detected (Not Detect); Parainfluenza Virus 2 Not Detected (Not Detect); Parainfluenza Virus 3 Not Detected (Not Detect); Parainfluenza Virus 4 Not Detected (Not Detect); Respiratory Syncytial Virus Not Detected (Not Detect); SARS- CoV-2 Not Detected (Not Detecte)
[2022-04-09 21:37] LABS: Alanine Aminotransferase 65 IU/L (<35); Albumin 4.6 g/dL (3.5-5.0); Albumin Globulin Ratio 1.3 (1.0-2.8); Alkaline Phosphatase 82 U/L (38-126); Aspartate Aminotransferase 40 IU/L (14-36); BUN Creatinine Ratio 24.4 (6-22); Bilirubin Total 0.9 mg/dL (0.2-1.3); Blood Urea Nitrogen 10 mg/dL (7-17); Calcium 9.7 mg/dL (8.4-10.2); Carbon Dioxide 27 mmol/L (22-32); Chloride 103 mmol/L (98-107); Creatine Kinase 149 U/L (30-135); Estimated Glomerular Filt Rate > 60 mL/min (>60); Globulin 3.5 g/dL (1.7-4.1); Glucose 200 mg/dL (70-100); HEMOLYSIS < 15 (0-50); Lipase 46 U/L (23-300); Potassium 4.3 mmol/L (3.4-5.1); Sodium 140 mmol/L (137-145); Total Protein 8.1 g/dL (6.3-8.2)
[2022-04-09 21:40] LABS: D Dimer 851 ng/ml (<500)
[2022-04-09 21:47] LABS: Troponin I < 0.012 ng/mL (0.01-0.034)
[2022-04-09 21:52] LABS: CKMB % Relative Index 2.2 % (1.5-5.0); Creatine Kinase MB 3.24 ng/mL (<2.37)
[2022-04-09 22:26] LABS: NT-proBNP (BNP-Adult 18+) 56 pg/mL (<125)
--- NOTE | 2022-04-09 23:01 | DI.CT.S_ITS ---
PROCEDURE: CT ANGIO CHEST PE PROTOCOL INDICATIONS: hypoxic TECHNIQUE: After the administration of intravenous contrast, 2 mm thick sections acquired from the pulmonary apices to the posterior costophrenic angles. 3-dimensional maximum intensity projection (MIP) coronal and sagittal reformats were then acquired through the thorax. For radiation dose reduction, the following was used: automated exposure control, adjustment of mA and/or kV according to patient size. COMPARISON: [facility], CR, XR CHEST 1V, 04/09/2022, 12:30. FINDINGS: Image quality: Excellent. Pulmonary arteries: Pulmonary arteries are normal in size, and demonstrate no intraluminal filling defects to suggest central pulmonary embolism. Lower Neck: No lymphadenopathy by size criteria. Thyroid: Visualized thyroid demonstrates no discrete nodules. Axillae: No lymphadenopathy by size criteria. Chest Wall: Unremarkable. Bones: Visualized osseous structures demonstrate no suspicious lesions. Lungs and Airways: There is a small linear region of consolidation in the right middle lobe along the major fissure. A subpleural nodule is demonstrated within the medial right lower lobe with associated internal calcification consistent with calcified granuloma. No suspicious pulmonary nodules. The trachea and central airways are patent. Pleura: No pneumothorax or pleural effusions. Heart: Heart size is normal. No pericardial effusion. Thoracic Vessels: The thoracic aorta is normal in size. Mediastinum and Katerine: No lymphadenopathy by size criteria. Esophagus: No wall thickening. No hiatal hernia. Abdomen: Visualized upper abdomen demonstrates a cyst within the posterior right hepatic dome measuring up to 1.4 cm. Wall IMPRESSION: 1. No evidence of pulmonary embolism. 2. Small linear region of consolidation within the posterior right middle lobe along the major fissure. The findings are nonspecific but suggestive of pneumonia. The differential includes atelectasis. Dictated by: Wilfrid Bagley M.D. on 04/10/2022 at 0:18 Approved by: Wilfrid Bagley M.D. on 04/10/2022 at 0:23
[2022-04-10] VITALS (12 sets, daily range): BP systolic 100–130; BP diastolic 51–65; PULSE 70–95; RESP 14–24; TEMP 36.4–37.1; O2SAT 92–97; BMI 28.3
--- NOTE | 2022-04-10 01:35 | PM.HP.1 ---
History of Present Illness History of Present Illness Date Patient Seen: 04/10/22 Time Patient Seen: 01:36 Chief complaint: Asthma, SOB Narrative: Johnna Ponce is a 57 yr old female surinamese speaking only, Cambodian-speaking familymember at bedside offered american sign language interpreter services but okay with family interpreting.? Presents today for the 2nd time with shortness of breath.? She has a history of asthma was seen earlier for an asthma exacerbation she was given albuterol and dexamethasone she was doing well.? She went home took a nap woke up and had some chest discomfort, back pain, some abdominal pain with increased difficulty breathing.? Patient originally presented with respiratory rates from 20-33, and heart rates from 102-117, and O2 saturations in the low 80s on room air. Patient received 2 nebulizing treatments in ED. Patient's earlier ED visit on 04/09/2022 demonstrated she was negative for COVID, flu A/B, and RSV. I personally reviewed patient's ER chart notes. At the time of admit patient verbalizes that signs and symptoms started approximately no more than 48 hours ago and quickly escalated, bring her into ED. It is noted that the patient's young daughter came down with a viral illness 4 days ago, was seen by pediatrics and was negative for COVID. Currently while resting in bed she is on 2 L of O2 still feels slightly short of breath, audible wheezing tight constricted breath sounds, patient appears to improve SOB by sitting in a more upward position in the bed. Patient endorses headache, sore throat, and intercostal pain diffusely across chest and upper abdomen She currently denies chest pain, abdominal pain other than epigastric muscle pain and discomfort with coughing, nausea, vomiting, diarrhea, hematemesis, diarrhea, constipation, blood in stool, urinary symptoms, hematuria, recent falls, skin injuries, infection, recent illness injury or trauma. Patient only takes albuterol as needed for chronic asthma denies any other medical history, has had no surgical procedures. Patient has not yet received the flu vaccine, but is fully vaccinated against COVID. At the time of admit temp 98.5?, BP 123/61, HR 93, O2 saturation 89% on 2 L respiratory rate of 20. Patient has no white count although very slight left shift 7600, chemistries are mostly unremarkable with the exception of glucose 200 creatinine 0.41, patient's D-dimer 851: Chest CTA negative for PE, small linear region of consolidation within the posterior right middle lobe along the major fissure, possibly suggestive of pneumonia. CK-2: 3.24, troponin BNP and lipase are all WNL. Patient's EKG sinus tachycardia with a rate of [address] or T-wave changes, patient's respiratory panel was positive for rhino virus. Patient admitted for acute respiratory failure with hypoxia secondary to rhino virus. Patient History Medical History Asthma Comment: No surgical history Family & Social History Family History (Updated 04/10/22 @ 02:53 by AKIN Duggan) Father Diabetes mellitus Hypertension Mother Hypertension Diabetes mellitus Social History: Patient lives with her spouse and sister, she works at the [employer] in [place]. Safety & Behavioral: Yes patient feels safe in her home. Tobacco & Substance use: Smoking Status Never smoker Alcohol-never Recreational substances/drugs never Meds Home Medications and Allergies Home Medications Medication Instructions Recorded Confirmed Type albuterol sulfate 90 mcg/actuation 2 puff INH Q4HP PRN Shortness Of 02/03/17 04/10/22 History aerosol inhaler (Ventolin HFA) Breath Or Wheezing ##0 Allergies Allergy/AdvReac Type Severity Reaction Status Date / Time No Known Allergies Allergy Verified 04/09/22 12:04 Review of Systems Review of Systems Narrative: All 12 point systems reviewed with the patient and are negative except otherwise documented. Exam Vital Signs (past 8 hours): - 04/09/22 19:12 04/09/22 19:38 04/09/22 22:21 Temperature 98.5 F Pulse Rate 98 H 99 H 100 H Respiratory Rate 24 20 29 H Blood Pressure 117/56 L Pulse Oximetry 94 94 94 Oxygen Delivery Method Room Air Room Air Oxygen Flow Rate 04/09/22 22:23 04/09/22 22:23 04/09/22 22:40 Temperature Pulse Rate 97 H 93 H Respiratory Rate 21 20 Blood Pressure 126/58 L Pulse Oximetry 93 90 L Oxygen Delivery Method Room Air Oxygen Flow Rate 04/09/22 22:30 04/09/22 22:30 04/09/22 23:59 Temperature Pulse Rate 97 H Respiratory Rate 24 Blood Pressure 123/61 Pulse Oximetry 92 89 L Oxygen Delivery Method Nasal Cannula Room Air Oxygen Flow Rate 2 04/10/22 00:55 Temperature Pulse Rate 94 H Respiratory Rate 23 Blood Pressure 129/61 Pulse Oximetry 92 Oxygen Delivery Method Nasal Cannula Oxygen Flow Rate 2 Oxygen Delivery Method Nasal Cannula Oxygen Flow Rate 2 Narrative Exam Narrative: General: Patient is a well-developed, well-nourished mushtaq surinamese speaking only female, who appears older than stated age, in no acute distress at this time. HEENT: Normocephalic, atraumatic, extraocular muscles intact, oral pharynx is clear and mucous membranes are dry. Neck is supple and symmetric, trachea is midline, no adenopathy, no thyroid enlargement, nontender, no masses palpated. Negative for JVD Chest: Normal AP diameter and contour without kyphoscoliosis, no nasal flaring, retractions, mildly tachypneic breathing Lungs: Auscultation of all lung leon are severely decreased, tight, poor air exchange, audible expiratory wheezing, shallow breathing. Cardio: regular rate and rhythm without murmur, rubs, or gallops, no carotid bruit, no cardiac pulsations present. Abdomen: Soft nontender, negative for organomegaly, or masses. Bowel sounds are present in all 4 quadrants without guarding or rebound, no CVA tenderness. Musculoskeletal: Muscle strength and tone are equal within normal limits, no deformity, crepitus, effusions, cyanosis, clubbing or edema present. Full range of motion intact radial and pedal pulses are normal. Skin: Warm dry and intact without rashes, ulcerations or petechiae. Patient appears dehydrated and dry. Neuro: Alert and orientated x3, moves all extremities, sensation to touch intact, no gross deficits noted of cranial nerves. Psych: Patient has a well-kept appearance, appropriate affect, mental status attitude thought context and judgment are appropriate for age. Patient's adult daughter provided translation, per patient's preference. Objective Labs Result Diagrams: 04/09/22 19:48 04/09/22 21:10 Labs: Laboratory Results - last 24 hr 04/09/22 04/09/22 04/09/22 19:34 19:48 21:10 WBC 8.1 RBC 4.74 Hgb 14.3 Hct 42.6 MCV 89.8 MCH 30.3 MCHC 33.7 RDW 14.0 Plt Count 179 Neut % (Auto) 93.2 H Lymph % (Auto) 5.7 L Manati % (Auto) 0.8 L Eos % (Auto) 0.1 L Baso % (Auto) 0.2 Neut # (Auto) 7600 H Lymph # (Auto) 500 L Man[place] # (Auto) 100 Eos # (Auto) 0 Baso # (Auto) 0 D-Dimer Sodium 140 Potassium 4.3 Chloride 103 Carbon Dioxide 27 BUN 10 Creatinine 0.41 L Estimated GFR > 60 BUN/Creatinine Ratio 24.4 H Glucose 200 H Calcium 9.7 Magnesium 2.0 Total Bilirubin 0.9 AST 40 H ALT 65 H Alkaline Phosphatase 82 Total Creatine Kinase 149 H CK-MB (CK-2) 3.24 H CK-MB (CK-2) Rel Index 2.2 Troponin I < 0.012 NT-Pro-B Natriuret Pep Total Protein 8.1 Albumin 4.6 Globulin 3.5 Albumin/Globulin Ratio 1.3 Lipase 46 Chlamy pneumoniae PCR Not detected Adenovirus (PCR) Not detected B. pertussis DNA (PCR) Not detected B.parapertussis DNA PCR Not detected Coronavirus OC43 (PCR) Not detected Coronavirus HKU1 (PCR) Not detected Coronavirus 229E (PCR) Not detected SARS-CoV-2 (PCR) Not detected Coronavirus NL63 (PCR) Not detected Human Metapneumovir PCR Not detected Influenza Type A (PCR) Not detected Influenza Type B (PCR) Not detected M. pneumoniae (PCR) Not detected Parainfluenza 1 (PCR) Not detected Parainfluenza 2 (PCR) Not detected Parainfluenza 3 (PCR) Not detected Parainfluenza 4 (PCR) Not detected RSV (PCR) Not detected Entero/Rhino (PCR) Detected H 04/09/22 04/09/22 21:10 21:10 WBC RBC Hgb Hct MCV MCH MCHC RDW Plt Count Neut % (Auto) Lymph % (Auto) Manati % (Auto) Eos % (Auto) Baso % (Auto) Neut # (Auto) Lymph # (Auto) [place] # (Auto) Eos # (Auto) Baso # (Auto) D-Dimer 851 H Sodium Potassium Chloride Carbon Dioxide BUN Creatinine Estimated GFR BUN/Creatinine Ratio Glucose Calcium Magnesium Total Bilirubin AST ALT Alkaline Phosphatase Total Creatine Kinase CK-MB (CK-2) CK-MB (CK-2) Rel Index Troponin I NT-Pro-B Natriuret Pep 56 Total Protein Albumin Globulin Albumin/Globulin Ratio Lipase Chlamy pneumoniae PCR Adenovirus (PCR) B. pertussis DNA (PCR) B.parapertussis DNA PCR Coronavirus OC43 (PCR) Coronavirus HKU1 (PCR) Coronavirus 229E (PCR) SARS-CoV-2 (PCR) Coronavirus NL63 (PCR) Human Metapneumovir PCR Influenza Type A (PCR) Influenza Type B (PCR) M. pneumoniae (PCR) Parainfluenza 1 (PCR) Parainfluenza 2 (PCR) Parainfluenza 3 (PCR) Parainfluenza 4 (PCR) RSV (PCR) Entero/Rhino (PCR) Assessment & Plan Assessment & Plan narrative: Johnna Ponce is a 57 yr old female surinamese speaking only, Cambodian-speaking familymember at bedside offered american sign language interpreter services but okay with family interpreting.? Presents today for the 2nd time with escalating shortness of breath, she had been seen earlier in the day for asthma exacerbation given albuterol and dexamethasone. But returned due to escalating shortness of breath. Patient admitted for acute respiratory failure with hypoxia secondary to rhino virus with symptoms of shortness of breath, tachycardia, and tachypnea. 1. Acute respiratory failure with hypoxia, shortness of breath, tachycardia, tachypnea, acute, secondary to rhino virus, with asthma, exacerbation, acute on chronic, present on admission -admit temp 98.5?, BP 123/61, HR 93, O2 saturation 89% on 2 L respiratory rate of 20. HR 102-117, RR 20-33, O2 saturations in the low 80s on room air in ED. - -D-dimer 851: Chest CTA negative for PE, small linear region of consolidation within the posterior right middle lobe along the major fissure, possibly suggestive of pneumonia. -total creatinine kinase 149, CK-2: 3.24, troponin BNP and lipase are all WNL. -positive rhino virus. -earlier ED visit on 04/09/2022 -negative for COVID, flu A/B, and RSV. -patient fully vaccinated against COVID requesting flu vaccine: order placed -labs ordered [id number] 200, procalcitonin, lactate -respiratory consult, DuoNebs q.4 hours, incentive spirometry q.4 hours while awake. -LR 100 cc/HR-as signs of dehydration: BUN creatinine ratio 24.4 (6Hr) -prednisone 40 mg q.day x4 days -holding HFA albuterol, using instead nebulizing treatments. 2. Overweight as evidence by BMI of 28.3, acute on chronic, present on admission -dietary consult ordered regarding nutritional education and information for dietary, lifestyle, exercise, and weight changes. -the patient is at much higher risk for medical and surgical complications due to overweight as it relates to increased risk of chronic illnesses:, and impairing ability to recover from acute illness. The patient's overweight increases the difficulty and complexity of medical and/or surgical interventions, management and increases the chances of poor outcome such as morbidity and mortality as well as impaired wound healing. Code status:Full Surrogate decision maker: Berny Masterson -spouse COVID PCR:Negative COVID vaccination: Fully vaccinated DVT/VTE prophylaxis: Lovenox and SCDs Disposition: Patient admitted for observation, to improve respiratory function with nebulizing treatments steroids and oxygen support, expected length of stay less than 2 midnights. I have utilized all available immediate resources to obtain, update, or review the patient's current medications. Exception-the patient is not eligible for medication reconciliation; the patient is in an emergent medical situation were delaying treatment would jeopardize the patient's health. I have personally reviewed patient's chart notes from PCP, specialists, diagnostic imaging, and laboratory, Time Spent With Patient Critical Care time: I spent a total of [] minutes of critical care time on this patient's care today; this time is exclusive of procedural time.
[2022-04-10] MEDS: LACTATED RINGERS 1,000 ML 100 ML IV (02:37)
[2022-04-10] MEDS: ACETAMINOPHEN 325 MG TABLET 650 MG PO (03:17)
--- NOTE | 2022-04-10 04:38 | PC.NURSE ---
Patient admitted to room 210 from ED at 0200. Patient is Telugu speaking only and wants her daughter who is at the bedside to interpret for her. At 0430 patient c/o SOB at rest and requested RT treatment. Audible wheezing present, O2 2L NC on. RT called for treatment and at bedside now.
[2022-04-10] MEDS: ALBUTEROL 2.5 MG/3 ML NEB (ADULT) INH ×2 (04:50→09:38)
[2022-04-10 05:06] LABS: Lactate (Lactic Acid) 1.1 mmol/L (0.7-2.1)
[2022-04-10 05:07] LABS: Blood Urea Nitrogen 11 mg/dL (7-17); Calcium 9.5 mg/dL (8.4-10.2); Carbon Dioxide 28 mmol/L (22-32); Chloride 103 mmol/L (98-107); Estimated Glomerular Filt Rate > 60 mL/min (>60); Glucose 165 mg/dL (70-100); HEMOLYSIS < 15 (0-50); Potassium 4.1 mmol/L (3.4-5.1); Sodium 140 mmol/L (137-145)
[2022-04-10 05:16] LABS: INR 1.1 (0.9-1.3)
[2022-04-10 05:29] LABS: Hemoglobin A1C% w Est Avg Glu 6.5 % (4.0-6.0)
[2022-04-10 05:31] LABS: NT-proBNP (BNP-Adult 18+) 93 pg/mL (<125)
[2022-04-10 05:39] LABS: Procalcitonin 0.06 ng/mL (<0.5)
[2022-04-10] MEDS: PANTOPRAZOLE DR 20 MG TABLET PO (06:03)
--- NOTE | 2022-04-10 08:12 | DI.US.S_ITS ---
PROCEDURE: US ABDOMEN LIMITED INDICATIONS: elevated LFT's, hepatic cyst on CTA chest TECHNIQUE: Real-time scanning was performed of the abdominal and retroperitoneal organs, with image documentation. COMPARISON: None. FINDINGS: Liver: Liver is enlarged and demonstrates diffusely increased echogenicity. Within the medial left hepatic lobe there is a hypoechoic focus measuring 26 mm. No hepatic cyst is seen. Gallbladder: Is within normal limits Biliary ducts: Intrahepatic bile ducts are non-dilated. Extrahepatic bile duct caliber measures 4 mm. Normal is 6-7 mm or less in diameter, or 10 mm or less post-cholecystectomy. Pancreas: Visualized portions of the pancreas are sonographically normal. IMPRESSION: 1. Hepatic steatosis. 2. Indeterminate left hepatic lobe lesion. This could be further assessed with liver protocol MRI, if clinically indicated. Dictated by: Robert Salcedo M.D. on 04/10/2022 at 14:44 Approved by: Robert Salcedo M.D. on 04/10/2022 at 14:46
[2022-04-10] MEDS: INFLUENZA VACCINE QIV 0.5 ML SYRINGE IM (09:51)
[2022-04-10] MEDS: ENOXAPARIN 40 MG/0.4 ML SYRINGE SUBCUT (09:52)
[2022-04-10] MEDS: predniSONE 20 MG TABLET 40 MG PO (09:52)
--- NOTE | 2022-04-10 11:24 | DIET.CONS ---
Addendum entered by Preeti Ulrich 04/10/22 11:38: RD agrees with student sales management intern note. Original Note: Dietary Consultation Note Admission Date: 04/10/2022 00:41 Admission Date: 04/08/2022 21:52 Assessment: Pt is a 57 yo F admitted for ARF d/t rhino virus seen by RD for BMI 28.3. Pt on prednisone, which will elevate BG while hospitalized. Pt is Niuean speaking only. Pt's daughter interpreted for RD and pt. 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 Pt reports both mother and father had T2DM. Diet Recall: B: shake with milk, banana and strawberries (no sugar added) L: sandwich or salad D: soup or meat Carolyn: coffee with sugar and milk Ht: 157.48 cm Wt: 83.5 kg BMI: 30.2 Last BM: 04/09/22 (04/09/22 09:49) MNA: 12 Souleymane Score: 19 Diet: 04/09/22 Lunch Clear Liquid Diet Diet Modifications: Nutrition Percent Meal Consumed 100% 04/10/22 08:41 Percent Meal Consumed 100% 04/09/22 17:30 Percent Meal Consumed 100% 04/09/22 13:11 Labs: RBC 3.93 X10^6/uL (4.0-5.2) L 04/09/22 06:35 Hgb 12.5 g/dL (12.0-16.0) 04/09/22 06:35 Hct 38.4 % (36-46) 04/09/22 06:35 Creatinine 1.05 mg/dL (0.52-1.04) H 04/10/22 04:48 Lactate 1.6 mmol/L (0.7-2.1) 04/08/22 20:16 NT-Pro-B Natriuret Pep 4990 pg/mL (<450) H 04/08/22 18:11 Nutrition Diagnosis: Altered lab values r/t endocrine dysfunction and intake of added sugar aeb A1C 6.5%, BG 165-200, pt diet recall shows sugar added to coffee. Interventions: 1. To support blood glucose health, pt diet changed to Carbohydrate Consistent diet while in the hospital. Recc pt replace sugar in coffee with non-nutritive sweetener. Provided pt with handouts on nutrition facts label information for patients with diabetes and a prediabetes overview handout - both in Niuean. 2. Encouraged pt to have annual surveillance for prediabetes with care team at [facility]. Monitoring/Evaluations: follow up with pt prn Electronically Signed by: Electronically Signed by: Sun Kruger 04/10/22 11:24 Clinical Dietitian [address] [address]
[2022-04-10] MEDS: ALBUTEROL/IPRATROPIUM 3 ML AMPUL INH ×3 (15:12→22:28)
--- NOTE | 2022-04-10 15:30 | CM.DANOTE ---
Patient is a 57 yo female who was admitted on 04/10/22 for Asthma Exac/SOB. Pt is SELF PAY and no insurance and her PCP is Matthew Queen. EMR was reviewed. Per MD, pt is Chinese Speaking only and wants family to interpret bedside and admitted for respiratory failure and hypoxia secondary to Rhino Virus. Pt currently on 2LO2 and on nebs and prednisone and possible new dx diabetes. Per [employer] Helper, will complete diabetes education for pre-diabetes prior to discharge. Per AD Counselors, pt non-documented and currently self-pay and AD Counselor attempted processing an [employer] ([employer]) application through the [employer] with patient?s daughter, Caren, and was able to be processed. Pt has had [employer] before but it?s been a while and most likely was for maternity only. She has a younger daughter and a spouse in the household for a total of 3. Patient is the only member working at $19/hr approx. 4-6 hours per day 5-6 days per week. Pt also given [employer] application. 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 Pt is independent at baseline. No bedside assessment at this time due to triage needs and precautions in place. Plan: SW to follow closely for pt progress to confirm safe plan of home with family and was given information for coverage for pt's admission due to current lack of medical insurance. SW to follow for any further identified discharge planning needs. YOLANDE Cintron Discharge Planning/Care Management CM Discharge Assessment Start: 04/10/22 15:27 Freq: Status: Active Protocol: Document 04/10/22 15:28 BF (Rec: 04/10/22 15:29 [id number]) Discharge Planning Assessment Assigned Certified Technician Specialist YOLANDE Red DPOA/Assigned Designee Name none Advance Directives? No Advance Directives on File No History Provided By Patient,Family Member,Medical Record Has Patient been admitted in last 30 No days? Prior Living Arrangements Mobile home Household Members spouse,children Type of transporation used prior to Drives own vehicle admit Independent with ADL's Yes Is patient alert and oriented? Yes Barriers to Discharge Yes Comment Self Pay Discharge Plan Home Transportation Arrangement Family to provide transport at d/c Referrals Initiated None needed Review Status In Process Please Provide Date Initial DC 04/10/22 Assessment Was Performed Next Review Type Continued Stay Review
[2022-04-10] MEDS: guaiFENesin ER 600 MG TAB PO (16:07)
[2022-04-10] MEDS: SODIUM CHLORIDE 0.9% FLUSH 10 ML IV (21:33)
[2022-04-11] VITALS (9 sets, daily range): BP systolic 101–129; BP diastolic 54–103; PULSE 65–90; RESP 14–24; TEMP 36.3–37; O2SAT 91–98
[2022-04-11] MEDS: guaiFENesin ER 600 MG TAB PO (04:51)
--- NOTE | 2022-04-11 04:56 | PC.NURSE ---
Persistent coughing, denies dyspnea. Medicated with 600 mg. of Mucinex & encouraged to drink more water. Will cont. POC & monitor.
[2022-04-11] MEDS: PANTOPRAZOLE DR 20 MG TABLET PO (05:34)
--- NOTE | 2022-04-11 08:39 | PM.PN.1 ---
Subjective Subjective Date Patient Seen: 04/11/22 Time Patient Seen: 09:00 Interval history: Breathing slowly improving. Was able to get up to chair yesterday for several hours. No complaints. Exam Vital Signs (past 8 hours): - 04/11/22 04:00 Temperature 97.4 F L Pulse Rate 65 Respiratory Rate 14 Blood Pressure 129/70 Pulse Oximetry 98 Oxygen Flow Rate 2 Fraction of Inspired Oxygen 28 SaO2/FiO2 Ratio 335 Oxygen Delivery Method Nasal Cannula Oxygen Flow Rate 2 Narrative Exam Narrative: General: Patient is a well-developed, well-nourished mushtaq gambian speaking only female, who appears older than stated age, in no acute distress at this time. HEENT: Normocephalic, atraumatic, extraocular muscles intact, oral pharynx is clear and mucous membranes are dry. Neck is supple and symmetric, trachea is midline, no adenopathy, no thyroid enlargement, nontender, no masses palpated. Negative for JVD Chest: Normal AP diameter and contour without kyphoscoliosis, no nasal flaring, retractions, mildly tachypneic breathing Lungs: Faint wheezes improving, left lung base rales present Cardio: regular rate and rhythm without murmur, rubs, or gallops, no carotid bruit, no cardiac pulsations present. Abdomen: Soft nontender, negative for organomegaly, or masses. Bowel sounds are present in all 4 quadrants without guarding or rebound, no CVA tenderness. Musculoskeletal: Muscle strength and tone are equal within normal limits, no deformity, crepitus, effusions, cyanosis, clubbing or edema present. Full range of motion intact radial and pedal pulses are normal. Skin: Warm dry and intact without rashes, ulcerations or petechiae. Patient appears dehydrated and dry. Neuro: Alert and orientated x3, moves all extremities, sensation to touch intact, no gross deficits noted of cranial nerves. Psych: Patient has a well-kept appearance, appropriate affect, mental status attitude thought context and judgment are appropriate for age. Patient's adult daughter provided translation, per patient's preference. Objective Labs Result Diagrams: 04/09/22 19:48 04/10/22 04:40 [facility] Medical History Asthma Family History (Updated 04/10/22 @ 02:53 by KIAN Duggan-BC) Father Diabetes mellitus Hypertension Mother Hypertension Diabetes mellitus Social History household members: spouse and children Smoking Status: Never smoker alcohol intake: never Assessment & Plan Assessment & Plan narrative: 1. Acute hypoxic resp failure secondary to rhinovirus triggering asthma exacerbation, present on admission -admit temp 98.5?, BP 123/61, HR 93, O2 saturation 89% on 2 L respiratory rate of 20. HR 102-117, RR 20-33, O2 saturations in the low 80s on room air in ED. - -D-dimer 851: Chest CTA negative for PE, small linear region of consolidation within the posterior right middle lobe along the major fissure, possibly suggestive of pneumonia. -positive rhino virus. -patient fully vaccinated against COVID and received flu vaccine while admitted -respiratory consult, DuoNebs q.4 hours, incentive spirometry q.4 hours while awake. -LR 100 cc/HR-as signs of dehydration: BUN creatinine ratio 24.4 (6Hr) -prednisone 40 mg q.day x5 days -holding HFA albuterol, using instead nebulizing treatments. -currently on 1-2L NC 2. Overweight as evidence by BMI of 28.3, acute on chronic, present on admission -dietary consult ordered regarding nutritional education and information for dietary, lifestyle, exercise, and weight changes. -the patient is at much higher risk for medical and surgical complications due to overweight as it relates to increased risk of chronic illnesses:, and impairing ability to recover from acute illness. The patient's overweight increases the difficulty and complexity of medical and/or surgical interventions, management and increases the chances of poor outcome such as morbidity and mortality as well as impaired wound healing. 3. Elevated LFT's -abd US shows fatty liver and indeterminate lesion -recommend possible outpatient liver MRI to assess lesion further -not on statins Code status:Full Surrogate decision maker: Berny Masterson -spouse COVID PCR:Negative COVID vaccination: Fully vaccinated DVT/VTE prophylaxis: Lovenox and SCDs Disposition: Home in 1-2 days. Time Spent With Patient Critical Care time: I spent a total of [] minutes of critical care time on this patient's care today; this time is exclusive of procedural time. Quality VTE Deep Vein Thrombosis/Pulmonary Embolism Present on Admission: No
[2022-04-11] MEDS: predniSONE 20 MG TABLET 40 MG PO (09:28)
[2022-04-11] MEDS: SODIUM CHLORIDE 0.9% FLUSH 10 ML IV ×2 (09:28→21:03)
[2022-04-11] MEDS: ENOXAPARIN 40 MG/0.4 ML SYRINGE SUBCUT (09:28)
[2022-04-11] MEDS: ALBUTEROL/IPRATROPIUM 3 ML AMPUL INH ×4 (10:19→22:30)
--- NOTE | 2022-04-11 10:48 | PC.NURSE ---
Addendum entered by Hayder Ahmadi R.N. 04/11/22 12:45: Pt presently up in chair having lunch. Chair alarm on. Daughter out of room presently. Original Note: A&O daughter attentive at bedside. Daughter helps translate for Pt as she is only Bengali speaking. Pt YOUNG's, offers no overt c/o though upper left lobe slightly wheezy. Continues on 2ltrs 92%. Discussed care with Dr. Plummer. see new orders.
--- NOTE | 2022-04-12 02:52 | PC.NURSE ---
Pt is AxOx4, independent in the room and Syrian speaking lady. Her dtr is in the room for audio visual collections coordinator. VSS, pt denies pain; pt is on 1L O2 and sats 95%. Lungs diminished in all areas. Continued droplet precaution. No other changes. Continue moniotor.
[2022-04-12 03:10] LABS: HBsAg Screen Negative (Negative); Hepatitis A Antibody IgM Negative (Negative); Hepatitis B Core Antibody IgM Negative (Negative); Hepatitis C Antibody <0.1 s/co ratio (0.0-0.9)
[2022-04-12 05:55] VITALS: BP 126/71; PULSE 80; RESP 18; TEMP 36.3; O2SAT 95
[2022-04-12] MEDS: guaiFENesin ER 600 MG TAB PO (08:14)
[2022-04-12] MEDS: PANTOPRAZOLE DR 20 MG TABLET PO (08:14)
[2022-04-12] MEDS: predniSONE 20 MG TABLET 40 MG PO (08:15)
[2022-04-12] MEDS: ENOXAPARIN 40 MG/0.4 ML SYRINGE SUBCUT (08:15)
[2022-04-12] MEDS: SODIUM CHLORIDE 0.9% FLUSH 10 ML IV (08:17)
--- NOTE | 2022-04-12 08:51 | P.DS_ITS ---
History of Present Illness History of Present Illness Date Patient Seen: 04/12/22 Time Patient Seen: 08:51 Chief complaint: Asthma, SOB Narrative: Per Destini Ling, [employer] OPERATOR-: Johnna Ponce is a 57 yr old female moroccan speaking only, English- speaking familymember at bedside offered interpreter translator services but okay with family interpreting.? Presents today for the 2nd time with shortness of breath.? She has a history of asthma was seen earlier for an asthma exacerbation she was given albuterol and dexamethasone she was doing well.? She went home took a nap woke up and had some chest discomfort, back pain, some abdominal pain with increased difficulty breathing.? Patient originally presented with respiratory rates from 20-33, and heart rates from 102-117, and O2 saturations in the low 80s on room air. Patient received 2 nebulizing treatments in ED. Patient's earlier ED visit on 04/09/2022 demonstrated she was negative for COVID, flu A/B, and RSV. I personally reviewed patient's ER chart notes. At the time of admit patient verbalizes that signs and symptoms started approximately no more than 48 hours ago and quickly escalated, bring her into ED. It is noted that the patient's young daughter came down with a viral illness 4 days ago, was seen by pediatrics and was negative for COVID. Currently while resting in bed she is on 2 L of O2 still feels slightly short of breath, audible wheezing tight constricted breath sounds, patient appears to improve SOB by sitting in a more upward position in the bed. Patient endorses headache, sore throat, and intercostal pain diffusely across chest and upper abdomen She currently denies chest pain, abdominal pain other than epigastric muscle pain and discomfort with coughing, nausea, vomiting, diarrhea, hematemesis, diarrhea, constipation, blood in stool, urinary symptoms, hematuria, recent falls, skin injuries, infection, recent illness injury or trauma. Patient only takes albuterol as needed for chronic asthma denies any other medical history, has had no surgical procedures. Patient has not yet received the flu vaccine, but is fully vaccinated against COVID. At the time of admit temp 98.5?, BP 123/61, HR 93, O2 saturation 89% on 2 L respiratory rate of 20. Patient has no white count although very slight left shift 7600, chemistries are mostly unremarkable with the exception of glucose 200 creatinine 0.41, patient's D-dimer 851: Chest CTA negative for PE, small linear region of consolidation within the posterior right middle lobe along the major fissure, possibly suggestive of pneumonia. CK-2: 3.24, troponin BNP and lipase are all WNL. Patient's EKG sinus tachycardia with a rate of [address] or T-wave changes, patient's respiratory panel was positive for rhino virus. Patient admitted for acute respiratory failure with hypoxia secondary to rhino virus. Discharge Providers Provider Date of admission: 04/10/22 09:50 Discharge Date: 04/12/22 Primary care physician: Matthew Queen MD Consults: 04/10/22 01:28 Consult to Respiratory Therapy Evaluate & Treat Comment: Rhino virus/SOB PRN Physician Instructions: Evaluate and treat 04/10/22 03:24 Consult to Dietitian, Adult Routine Comment: Reason For Exam: BMI 28.3 Discharge provider: Melquiades Urbina DO Summary Hospital Course Discharge Diagnosis: 1. Acute hypoxic resp failure secondary to rhinovirus triggering asthma exacerbation, present on admission 2. Overweight as evidence by BMI of 28.3, acute on chronic, present on admission 3. Elevated LFT's Hospital Course: 57 year old female admitted with acute respiratory failure with hypoxia due to rhinovirus triggering an asthma exacerbation. She was started on steroids with improvement over the following couple of days. On the day of discharge, she felt improved and was able to ambulate on room air with O2 saturations above 90%. She will complete steroid treatment at home and home nebulizer machine was prescribed. She should follow up with primary care for further asthma management as an outpatient. Also recommend repeat transaminase evaluation as an outpatient as these were likely elevated in the setting of her illness. Time Spent with Patient Time spent: Greater than 30 minutes Exam Vital Signs (past 8 hours): - 04/12/22 05:55 Temperature 97.3 F L Pulse Rate 80 Respiratory Rate 18 Blood Pressure 126/71 Pulse Oximetry 95 Fraction of Inspired Oxygen 28 SaO2/FiO2 Ratio 335 Oxygen Delivery Method Nasal Cannula Oxygen Flow Rate 1.5 Narrative Exam Narrative: General: Patient is a well-developed, well-nourished who appears older than stated age, in no acute distress at this time. HEENT: Normocephalic, atraumatic, extraocular muscles intact, oral pharynx is clear and mucous membranes are moist. Chest: Normal AP diameter and contour without kyphoscoliosis, no nasal flaring, retractions, no tachypnea. Lungs: CTA b/l without wheezing rhonchi or rales. Cardio: regular rate and rhythm without murmur, rubs, or gallops, no carotid bruit, no cardiac pulsations present. Musculoskeletal: Muscle strength and tone are equal within normal limits, no deformity, crepitus, effusions, cyanosis, clubbing or edema present. Skin: Warm dry and intact without rashes, ulcerations or petechiae. Patient appears dehydrated and dry. Neuro: Alert and orientated x3, moves all extremities, sensation to touch intact, no gross deficits noted of cranial nerves. Psych: Patient has a well-kept appearance, appropriate affect, mental status attitude thought context and judgment are appropriate for age. Patient's adult daughter provided translation, per patient's preference. Objective Labs Result Diagrams: 04/09/22 19:48 04/10/22 04:40 Labs: Laboratory Results - last 24 hr 04/10/22 04:40 Hepatitis A IgM Ab Negative Hep Bs Antigen Negative Hep B Core IgM Ab Negative Hepatitis C Antibody <0.1 Hep C Ab Signal/Cutoff Comment [facility] Medical History Asthma Family History (Updated 04/10/22 @ 02:53 by [facility] Father Diabetes mellitus Hypertension Mother Hypertension Diabetes mellitus Social History household members: spouse and children Smoking Status: Never smoker alcohol intake: never Discharge Plan Discharge Plan Patient Disposition: Home Provider Discharge Comment: You were admitted to the hospital with a rhinovirus (common cold virus) and exacerbation of asthma. Continue steroids at home. Nebulizer machine also prescribed. Please follow up with your primary care provider for asthma follow up. Discharge orders & Medications Prescriptions: New prednisone 20 mg Tablet 40 mg PO DAILY 3 Days Qty: 6 0RF guaifenesin [Mucus Relief ER] 600 mg Tablet Extended Release 12hr 600 mg PO Q12HR PRN (Reason: Cough) 5 Days Qty: 10 0RF (DME) nebulizer and compressor Device See Rx Instructions .Route Qty: 1 0RF Rx Instructions: One nebulizer and compressor albuterol sulfate 1.25 mg/3 mL solution for nebulization 1.25 mg inhalation QID PRN (Reason: shortness of breath or wheezing) 30 Days Qty: 90 0RF Continued albuterol sulfate [Ventolin HFA] 90 MCG/PUFF HFA aerosol inhaler 2 puff INH Q4HP PRN (Reason: Shortness Of Breath Or Wheezing) Qty: 0 Follow up/Referrals: Matthew Queen MD [Primary Care Provider] - Diet/Activity/Treatments Diet: Diet as Tolerated Activity: As tolerated Skin/Wound/Dressing Care Report to your healthcare provider any signs of infection, such as:: chills, fever Discharge Data Primary Care Provider: Matthew Queen Quality VTE Deep Vein Thrombosis/Pulmonary Embolism Present on Admission: No
[2022-04-12 08:58] VITALS: BP 126/80; PULSE 77; RESP 18; TEMP 36.9; O2SAT 93
--- NOTE | 2022-04-12 11:04 | CM.DPNOTE ---
Discharge Planning Note: Patient on respiratory precautions. She is Citizen Of [place] speaking only. She has no insurance, Medicaid is not set up yet. Plan: Family to transport home on [place] today. ABBIE
== END 2022-04-12 09:34 | disposition home or self-care (01) | DRG 202 ==
LOC: ED 04-10 00:40 → AC 04-10 00:44
PROVIDERS: Student in an Organized Health Care Education/Training Program; Admitting Provider Nurse Practitioner Family; Emergency Provider Emergency Medicine; PCP Family Medicine; Visit Provider Nurse Practitioner Family
DX: J45.901 Unspecified asthma with (acute) exacerbation (principal); J96.01 Acute respiratory failure with hypoxia; B34.1 Enterovirus infection, unspecified; E66.3 Overweight; Z20.822 Contact with and (suspected) exposure to COVID-19; Z68.28 Body mass index [BMI] 28.0-28.9, adult; Z23 Encounter for immunization
CPT/HCPCS: 36415; 71275; 76705; 80048; 80053; 80074; 82105; 82550; 82553; 83036; 83605; 83690; 83735; 83880; 84145; 84484; 85025; 85379; 85610; 87633; 90471; 90656; 93005; 94640; 94760; 99285; G0378; J1650; J7613; Q2038; Q9967